=== PATIENT | male | born 1980 | race African-American/Black ===

== ENCOUNTER 2021-04-17 03:36 | Emergency (ER) | payer MEDICAID ==
[~2021-04-17] VITALS: Ht 177.8 cm; Wt 73.0 kg
[2021-04-17 04:17] VITALS: BP 119/78
[2021-04-17] MEDS ORDERED: BACITRACIN ZINC OINT UDPKT TOP ONE (04:30)
[2021-04-17] MEDS ORDERED: LIDOCAINE HCL/EPINEPHRINE 1%-EPI 1:100,000 20 ML VIAL INFIL ONE (04:30)
[2021-04-17] MEDS ORDERED: ACETAMINOPHEN 325MG TABLET PO ONE (04:30)
[2021-04-17] MEDS ORDERED: TETANUS, DIPHTHERIA, PERTUSSIS VAC/PF 0.5ML (>10YR OLD) IM ONE (04:30)
[2021-04-17] MEDS ORDERED: TOPUD MT (05:50)
== END 2021-04-17 06:36 | disposition home or self-care (01) ==
LOC: ER 03:36
DX: S61.412A Laceration without foreign body of left hand, initial encounter (principal); S51.812A Laceration without foreign body of left forearm, initial encounter; Z88.0 Allergy status to penicillin; W25.XXXA Contact with sharp glass, initial encounter; Y93.89 Activity, other specified; Y92.018 Other place in single-family (private) house as the place of occurrence of the external cause
CPT/HCPCS: 12002; 73090; 73130; 90471; 90715; 99284; J3490; Z7610

== ENCOUNTER 2021-04-22 04:54 | Emergency (ER) | payer MEDICAID ==
[~2021-04-22] VITALS: Ht 177.8 cm; Wt 73.0 kg
[~2021-04-22 04:54] MED LIST: TOPUD MT
[2021-04-22 05:00] VITALS: BP 114/61
== END 2021-04-22 05:13 | disposition home or self-care (01) ==
LOC: ER 04:54
DX: Z48.00 Encounter for change or removal of nonsurgical wound dressing (principal); Z88.0 Allergy status to penicillin
CPT/HCPCS: 99281